=== PATIENT | male | born 1960 | race Asian ===

== ENCOUNTER 2017-08-29 16:13 | Emergency (ER) | payer OTHER ==
[~2017-08-29] VITALS: Ht 177.8 cm; Wt 98.9 kg
[2017-08-29 16:08] VITALS: TEMP 98.1
[2017-08-29 17:47] LABS: PLATELET COUNT 269 K/uL (142-355)
[2017-08-29 17:55] LABS: POTASSIUM 4.6 mmol/L (3.6-5.2)
[2017-08-29 18:19] VITALS: BP 142/86
== END 2017-08-29 18:21 | disposition home or self-care (01) ==
LOC: ED 16:13
DX: K21.9 Gastro-esophageal reflux disease without esophagitis (principal); R10.9 Unspecified abdominal pain
CPT/HCPCS: 36415; 80053; 85027; 96372; 99283; J1815

== ENCOUNTER 2017-08-30 09:50 | Inpatient (IN) | payer OTHER ==
[~2017-08-30] VITALS: Ht 177.8 cm; Wt 98.9 kg
[2017-08-30] VITALS (13 sets, daily range): BP systolic 100–155; BP diastolic 59–94; TEMP 97.7–98.8; Ht 177.8 cm; Wt 98.9 kg
[2017-08-30 11:03] LABS: PLATELET COUNT 243 K/uL (142-355)
[2017-08-30 12:03] LABS: POTASSIUM 4.1 mmol/L (3.6-5.2)
[2017-08-31] VITALS (22 sets, daily range): BP systolic 120–171; BP diastolic 66–88; TEMP 98–98.9
[2017-08-31 06:31] LABS: PLATELET COUNT 176 K/uL (142-355)
[2017-08-31 07:40] LABS: POTASSIUM 3.3 mmol/L (3.6-5.2)
[2017-08-31] MEDS ORDERED: ISONIAZID300 MG PO (14:27)
[2017-08-31] MEDS ORDERED: VITAMIN B650 MG PO (14:28)
[2017-08-31] MEDS ORDERED: OLAN2.5T2 PO (14:30)
[2017-08-31] MEDS ORDERED: HYDR50CA21 PO (14:31)
[2017-08-31] MEDS ORDERED: REMERON SLTB45 MG OR (14:32)
[2017-09-01] VITALS (20 sets, daily range): BP systolic 103–158; BP diastolic 61–89; TEMP 98–98.2
[2017-09-01 06:23] LABS: PLATELET COUNT 147 K/uL (142-355)
[2017-09-01 06:33] LABS: POTASSIUM 2.8 mmol/L (3.6-5.2)
[2017-09-02] VITALS (22 sets, daily range): BP systolic 92–128; BP diastolic 8–652; TEMP 98.2–99.1
[2017-09-02 06:13] LABS: PLATELET COUNT 127 K/uL (142-355)
[2017-09-02 06:28] LABS: POTASSIUM 3.2 mmol/L (3.6-5.2)
[2017-09-03] VITALS (24 sets, daily range): BP systolic 102–141; BP diastolic 63–83; TEMP 97.9–98.9
[2017-09-03 06:08] LABS: PLATELET COUNT 95 K/uL (142-355)
[2017-09-03 06:22] LABS: POTASSIUM 3.2 mmol/L (3.6-5.2)
[2017-09-04] VITALS (13 sets, daily range): BP systolic 113–133; BP diastolic 61–84; TEMP 98.4–98.5
[2017-09-04 06:46] LABS: PLATELET COUNT 113 K/uL (142-355)
[2017-09-04 06:58] LABS: POTASSIUM 3.8 mmol/L (3.6-5.2); SODIUM 139 mmol/L (136-145)
[2017-09-05 05:59] LABS: POTASSIUM 3.7 mmol/L (3.6-5.2)
[2017-09-05 06:28] LABS: PLATELET COUNT 163 K/uL (142-355)
[2017-09-05 08:00] VITALS: BP 102/62; TEMP 98.2
[2017-09-05 12:00] VITALS: BP 104/68; TEMP 98.4
== END 2017-09-05 13:45 | DRG 637 ==
LOC: ED 09:50 → MED/SURG 12:25 → ICU 12:25 → MED/SURG 09-04 14:00
PROVIDERS: Emergency Medicine
DX: E13.10 Other specified diabetes mellitus with ketoacidosis without coma (principal); K85.90 Acute pancreatitis without necrosis or infection, unspecified; J18.8 Other pneumonia, unspecified organism; E83.41 Hypermagnesemia; E83.39 Other disorders of phosphorus metabolism; N18.3 Chronic kidney disease, stage 3 (moderate); E11.65 Type 2 diabetes mellitus with hyperglycemia; E03.8 Other specified hypothyroidism; K59.09 Other constipation
CPT/HCPCS: 36415; 36591; 36600; 80048; 80053; 80061; 80200; 80307; 81000; 81002; 82150; 82330; 82570; 82607; 82728; 82747; 82805; 82947; 82948; 82962; 83036; 83540; 83550; 83615; 83690; 83735; 83880; 84100; 84300; 84443; 84540; 85027; 85044; 86318; 87040; 93005; 93306; 94640; 94664; 94760; 96361; 96365; 96372; 96375; 99283; 99285; G0479; J1650; J1815; J1956; J3260; J3411; J3480; J3490; Q0177